=== PATIENT | female | born 1970 | race Caucasian/White ===

== ENCOUNTER → 2016-06-26 | Day surgery (SDC) | payer OTHER ==
--- NOTE | 2016-06-25 11:08 | History & Physical Pre-Op ---
General Information and HPI History of Present Illness: Patient is 45-year-old 7 para 3 with a known diagnosis of endometrial hyperplasia without atypia on progesterone therapy who presents for a D&C follow -up to assess histology. Allergies/Medications Allergies: Coded Allergies: No Known Allergies (06/18/16) Home Med list Liraglutide (Victoza 2-Baldev) 0.6 MG/0.1 ML (18 MG/3 ML) PEN.INJCTR 2.5 ML SC DAILY DMII (Reported) Metformin HCl (Metformin HCl ER) 1,000 MG TAB.ER.24 1 TAB PO DAILY DM II ( Reported) Past History Medical History Cardiovascular: hypertension Psychiatric: anxiety Endocrine: diabetes Surgical History Pertinent Surgical History: , tubal ligation Review of Systems Review of Systems Constitutional: Reports: no symptoms. EENTM: Reports: no symptoms. Cardiovascular: Reports: no symptoms. Respiratory: Reports: no symptoms. GI: Reports: no symptoms. Genitourinary: Reports: no symptoms. Musculoskeletal: Reports: no symptoms. Skin: Reports: no symptoms. Neurological/Psychological: Reports: no symptoms. Hematologic/Endocrine: Reports: no symptoms. Immunologic/Allergic: Reports: no symptoms. All Other Systems: Reviewed and Negative Exam & Diagnostic Data Last 24 Hrs of Vital Signs/I&O Vital signs stable Physical Exam: HEENT: Normocephalic atraumatic Chest: Clear to auscultation bilaterally Cardiovascular: Normal S1, S2 Abdomen: Moderately obese nontender Pelvic: Deferred to or Extremities: No clubbing cyanosis or edema Neurologic: Nonfocal Assessment/Plan Assessment/Plan: Endometrial hyperplasia D&C, hysteroscopy As Ranked By This Provider Problem List: 1. Endometrial hyperplasia without atypia, complex
[~2016-06-26] VITALS: Ht 175.3 cm; Wt 108.9 kg
[~2016-06-26] MED LIST: METFORMIN HCL1000 M2 PO; VICTOZA 2-0.6 MG/0.1 SC
--- NOTE | 2016-06-26 17:52 | Operative Report ---
Operative/Inv Procedure Report Surgery Date: 06/26/16 Name of Procedure: D&C hysteroscopy Pre-Operative Diagnosis: Endometrial hyperplasia Post-Operative Diagnosis: Path pending Estimated Blood Loss: less than 50ml Surgeon/Orthotist Or Prosthetist: SUKHDEEP THACKER MD Anesthesia: local monitored anesthesi Operative/Procedure Note Note: The patient was brought to the operating room and placed on the OR table in the dorsal supine position. She was given adequate anesthesia and repositioned in modified dorsal lithotomy. She was prepped and draped in the usual sterile fashion. A weighted speculum was inserted into the vagina with the help of a [place] retractor single-tooth tenaculum was attached to the anterior lip of the cervix. Cervix was injected with 1% lidocaine with epinephrine 2-1/2 mL in each quadrant. An endocervical curettage was performed revealing a small amount of tissue. The uterus is then sounded to 10 cm. The cervix was serially dilated to accommodate the hysteroscope which was placed into the fundus and activated shaggy endometrium was noted throughout the uterus there were no polyps fibroids or areas suspicious for cancer. The uterine hysteroscope was then removed. The cervix was further dilated and sharp curettage followed. The end of the procedure the entrance removed patient was awakened and sent to recovery in good condition. All needle, sponge, and instrument counts were correct at the end of the procedure 2.
== END ==
LOC: STS 01:07
DX: N85.00 Endometrial hyperplasia, unspecified (principal); E11.9 Type 2 diabetes mellitus without complications; Z79.84 Long term (current) use of oral hypoglycemic drugs; J44.9 Chronic obstructive pulmonary disease, unspecified; F17.210 Nicotine dependence, cigarettes, uncomplicated
CPT/HCPCS: 81025; 88305; J2250